=== PATIENT | female | born 1965 | race Caucasian/White ===

== ENCOUNTER → 2024-06-20 | Day surgery (SDC) | payer BC ==
[~2024-06-20] MED LIST: FENTANYL CITRATE/PF 100MCG/2 ML INJ ONE; LIDOCAINE HCL 2% LOCAL INJ 5 ML SDV VIAL INJ ONE; MIDAZOLAM HCL 2 MG/2 ML VIAL ONE; PROPOFOL IV EMULSION 10 MG/ML 20 ML VIAL ONE
[2024-06-20] MEDS: LACTATED RINGER'S 1,000 ML ONE (08:38)
[2024-06-20 11:15] VITALS: BP 131/79; PULSE 81; RESP 16; O2SAT 99
== END | disposition home or self-care (01) ==
LOC: OR 08:33
PROVIDERS: ATTEND Internal Medicine Gastroenterology
DX: Z12.11 Encounter for screening for malignant neoplasm of colon (principal); D12.0 Benign neoplasm of cecum; D12.3 Benign neoplasm of transverse colon; K57.30 Diverticulosis of large intestine without perforation or abscess without bleeding; K64.8 Other hemorrhoids; K64.4 Residual hemorrhoidal skin tags; K25.9 Gastric ulcer, unspecified as acute or chronic, without hemorrhage or perforation; K29.50 Unspecified chronic gastritis without bleeding; K31.89 Other diseases of stomach and duodenum; K21.9 Gastro-esophageal reflux disease without esophagitis; K44.9 Diaphragmatic hernia without obstruction or gangrene; M19.91 Primary osteoarthritis, unspecified site; Z01.810 Encounter for preprocedural cardiovascular examination
CPT/HCPCS: 43239; 45384; 93005; J2001; J2250; J2704; J3010; J7121; 45378